=== PATIENT | male | born 1965 | race Caucasian/White ===

== ENCOUNTER 2022-12-24 08:25 | Inpatient (IN) | payer OTHER ==
[2022-12-24 10:48] VITALS: BMI 28.8
[2022-12-24] MEDS ORDERED: ONDANSETRON *ODT* 4 MG TABLET SL PRN (11:24)
[2022-12-24] MEDS ORDERED: DICYCLOMINE HCL 10 MG CAPSULE PO PRN (11:24)
[2022-12-24] MEDS ORDERED: IBUPROFEN 400 MG TABLET (FP) PO PRN (11:24)
[2022-12-24] MEDS ORDERED: BENZOCAINE/MENTHOL (CHLORASEPTIC ) LOZENGE MM PRN (11:24)
[2022-12-24] MEDS ORDERED: POLYETHYLENE GLYCOL (HEALTHYLAX) 3350 17 GM PACKET PO PRN (11:24)
[2022-12-24] MEDS ORDERED: LORazepam 1 MG TABLET PO PRN (11:24)
[2022-12-24] MEDS ORDERED: LOPERAMIDE HCL 2 MG CAPSULE PO PRN (11:24)
[2022-12-24] MEDS ORDERED: ACETAMINOPHEN 325 MG TABLET (FP) PO PRN ×2 (11:24)
[2022-12-24] MEDS ORDERED: IBUPROFEN 600 MG TABLET (FP) PO PRN (11:24)
[2022-12-24] MEDS ORDERED: MAGNESIUM HYDROX 2400MG/30ML ORAL SUSPENSION 30 ML CUP PO PRN (11:24)
[2022-12-24] MEDS ORDERED: BISMUTH SUBSALICYLATE 262 MG/15 ML BTL PO PRN (11:24)
[2022-12-24] MEDS ORDERED: MAG HYDROX/AL HYDROX/SIMETH 30 ML UNIT-DOSE CUP PO PRN (11:24)
[2022-12-24] MEDS ORDERED: ALBUTEROL SO4 HFA INHALER IH PRN (11:46)
[2022-12-24] MEDS ORDERED: ALBUTEROL SO4 0.083% IH SOL 2.5 MG/3 ML VIAL.NEB. NEB PRN (11:47)
[2022-12-24] MEDS: METHOCARBAMOL 500 MG TABLET PO PRN (13:34)
[2022-12-24] MEDS: hydrOXYzine PAMOATE 25 MG CAPSULE (FP) PO PRN (13:34)
[2022-12-24 15:23] LABS: HEMATOCRIT 43.9 % (35.4-49); HEMOGLOBIN 14.8 GM/dL (11.7-16.9); MCH 34.4 pg (25.7-33.7); MCHC 33.7 g/dl (32.0-35.9); MEAN CELL VOLUME 102.1 fl (80-96); MEAN PLT VOLUME 8.6 fl (7.5-11.1); PLATELET COUNT 95 10^3/uL (134-434); RDW 15.4 % (11.9-15.9); WHITE BLOOD COUNT 4.9 K/mm3 (4.0-10.0)
[2022-12-24 15:25] LABS: CALCIUM 8.7 mg/dL (8.5-10.1)
[2022-12-24 15:26] LABS: ALBUMIN 3.6 g/dl (3.4-5.0); BLOOD UREA NITROGEN 5.9 mg/dL (7-18)
[2022-12-24 15:29] LABS: CREATININE 0.6 mg/dL (0.55-1.3)
[2022-12-24 15:31] LABS: BILIRUBIN,TOTAL 0.7 mg/dL (0.2-1); TOT PROT 7.5 g/dl (6.4-8.2)
[2022-12-24] MEDS ORDERED: MELATONIN 5 MG TABLETS PO SCH (22:00)
[2022-12-24] MEDS: THIAMINE HCL 100 MG TABLET (FP) PO SCH (22:23)
[2022-12-24] MEDS: DIVALPROEX SODIUM 500 MG TABLET E.C. PO SCH (22:23)
[2022-12-24] MEDS: SUVOREXANT 10 MG TABLET PO PRN (22:23)
[2022-12-24] MEDS: FAMOTIDINE 20 MG TABLET PO SCH (22:23)
[2022-12-24] MEDS: LORazepam 2 MG TABLET PO SCH (22:25)
[2022-12-25] MEDS: LORazepam 2 MG TABLET PO SCH ×4 (05:48→22:18)
[2022-12-25] MEDS: FAMOTIDINE 20 MG TABLET PO SCH ×2 (10:24→22:17)
[2022-12-25] MEDS: PRENATAL VITAMINS W/ FOLIC ACID TABLET (FP) PO SCH (10:24)
[2022-12-25] MEDS: METHOCARBAMOL 500 MG TABLET PO PRN (10:24)
[2022-12-25] MEDS: DIVALPROEX SODIUM 500 MG TABLET E.C. PO SCH ×2 (10:24→22:18)
[2022-12-25] MEDS: hydrOXYzine PAMOATE 25 MG CAPSULE (FP) PO PRN (10:25)
[2022-12-25] MEDS: LACTULOSE 20 GM/30 ML UDC (FOR ORAL USE ONLY) PO SCH ×4 (10:26→22:18)
[2022-12-25] MEDS: ATORVASTATIN CA 10 MG TABLET (FP) PO SCH (22:17)
[2022-12-25] MEDS: THIAMINE HCL 100 MG TABLET (FP) PO SCH (22:18)
[2022-12-26] MEDS ORDERED: LORazepam 0.5 MG TABLET PO PRN (00:01)
[2022-12-26] MEDS: LORazepam 1 MG TABLET PO SCH ×4 (05:55→22:10)
[2022-12-26] MEDS: PRENATAL VITAMINS W/ FOLIC ACID TABLET (FP) PO SCH (10:35)
[2022-12-26] MEDS: LACTULOSE 20 GM/30 ML UDC (FOR ORAL USE ONLY) PO SCH ×4 (10:35→22:16)
[2022-12-26] MEDS: DIVALPROEX SODIUM 500 MG TABLET E.C. PO SCH ×2 (10:35→22:10)
[2022-12-26] MEDS: FAMOTIDINE 20 MG TABLET PO SCH ×2 (10:36→22:11)
[2022-12-26] MEDS: THIAMINE HCL 100 MG TABLET (FP) PO SCH (22:10)
[2022-12-26] MEDS: ATORVASTATIN CA 10 MG TABLET (FP) PO SCH (22:10)
[2022-12-26] MEDS: SUVOREXANT 10 MG TABLET PO PRN (22:15)
[2022-12-27] MEDS ORDERED: LORazepam 0.5 MG TABLET PO PRN (00:01)
[2022-12-27] MEDS: LORazepam 0.5 MG TABLET PO SCH ×4 (05:33→22:15)
[2022-12-27] MEDS: DIVALPROEX SODIUM 500 MG TABLET E.C. PO SCH ×2 (10:17→22:15)
[2022-12-27] MEDS: hydrOXYzine PAMOATE 25 MG CAPSULE (FP) PO PRN (10:17)
[2022-12-27] MEDS: FAMOTIDINE 20 MG TABLET PO SCH ×2 (10:17→22:15)
[2022-12-27] MEDS: PRENATAL VITAMINS W/ FOLIC ACID TABLET (FP) PO SCH (10:17)
[2022-12-27] MEDS: LACTULOSE 20 GM/30 ML UDC (FOR ORAL USE ONLY) PO SCH ×4 (10:18→22:16)
[2022-12-27] MEDS: SUVOREXANT 10 MG TABLET PO PRN (21:58)
[2022-12-27] MEDS: ATORVASTATIN CA 10 MG TABLET (FP) PO SCH (22:15)
[2022-12-27] MEDS: THIAMINE HCL 100 MG TABLET (FP) PO SCH (22:15)
[2022-12-28] MEDS ORDERED: LORazepam 0.5 MG TABLET PO ONE (05:00)
[2022-12-28] MEDS: DIVALPROEX SODIUM 500 MG TABLET E.C. PO SCH (10:32)
[2022-12-28] MEDS: PRENATAL VITAMINS W/ FOLIC ACID TABLET (FP) PO SCH (10:32)
[2022-12-28] MEDS: FAMOTIDINE 20 MG TABLET PO SCH (10:32)
[2022-12-28] MEDS: LACTULOSE 20 GM/30 ML UDC (FOR ORAL USE ONLY) PO SCH ×2 (10:34→13:17)
[2022-12-28 12:54] VITALS: BP 105/73; PULSE 114; RESP 16; TEMP 97.8
== END 2022-12-28 14:53 | disposition home or self-care (01) | DRG 897 ==
LOC: YASAS 08:25 → Y6N 12:20
PROVIDERS: ADMIT Allergy & Immunology; ATTEND Surgery
PROC: HZ2ZZZZ Detoxification Services for Substance Abuse Treatment (ICD-10-PCS; principal; 2022-12-24)
DX: F10.230 Alcohol dependence with withdrawal, uncomplicated (principal); B18.1 Chronic viral hepatitis B without delta-agent; F12.20 Cannabis dependence, uncomplicated; F10.282 Alcohol dependence with alcohol-induced sleep disorder; F10.280 Alcohol dependence with alcohol-induced anxiety disorder; F10.24 Alcohol dependence with alcohol-induced mood disorder; F31.9 Bipolar disorder, unspecified; F41.9 Anxiety disorder, unspecified; J45.20 Mild intermittent asthma, uncomplicated; K21.9 Gastro-esophageal reflux disease without esophagitis; R79.89 Other specified abnormal findings of blood chemistry; R56.9 Unspecified convulsions; R74.01 Elevation of levels of liver transaminase levels; Z86.19 Personal history of other infectious and parasitic diseases; Z28.310 Unvaccinated for COVID-19; Z28.9 Immunization not carried out for unspecified reason
CPT/HCPCS: 36415; 80053; 82140; 84450; 84460; 84520; 85027; 86780; 87811; 93005; 93010; C9803-CS; U0003; U0005